=== PATIENT | female | born 1940 | race Caucasian/White ===

== ENCOUNTER 2018-09-07 12:39 | Emergency (ER) | payer MEDICARE, MEDICAID ==
[~2018-09-07] VITALS: Ht 167.6 cm; Wt 82.0 kg
[2018-09-07] MEDS ORDERED: LOSA25TA12 PO (12:48)
[2018-09-07] MEDS ORDERED: ALEN70TA3 PO (12:48)
[2018-09-07] MEDS ORDERED: ASPI-1159 PO (12:48)
[2018-09-07] MEDS ORDERED: PRAV20TA57 PO (12:48)
[2018-09-07] MEDS ORDERED: BACITRACIN ZINC OINT UDPKT TOP ONE (13:15)
[2018-09-07] MEDS ORDERED: TETANUS, DIPHTHERIA, PERTUSSIS VAC/PF 0.5ML (>7YR OLD) IM ONE (13:15)
[2018-09-07] MEDS ORDERED: ACETAMINOPHEN 325MG TABLET PO ONE (13:15)
[2018-09-07] MEDS ORDERED: LOSARTAN POTASSIUM 25 MG TABLET PO ONE (13:45)
[2018-09-07] MEDS ORDERED: LEVETIRACETAM 500MG PREMIX 100 ML IV ONE (15:30)
[2018-09-07] MEDS ORDERED: LABETALOL 5MG/ML SYR 20 MG/4 ML SYRINGE IV ONE (16:00)
[2018-09-07 16:04] LABS: BASOPHILS % 0.3 % (0.0-2.0); CHLORIDE 100 mEq/L (98-107); EOSINOPHILS % 0.6 % (0.0-5.0); HEMATOCRIT. 45.7 % (36.0-48.0); HEMOGLOBIN. 15.5 g/dL (12.0-16.0); LYMPHOCYTES % 12.4 % (20.0-50.0); MEAN CORPUSCULAR HEMOGLOBIN 30.9 pg (28.0-32.0); MEAN CORPUSCULAR VOLUME 90.9 fL (81.0-99.0); MEAN PLATELET VOLUME 8.9 fl (7.4-10.4); MONOCYTES % 4.7 % (2.0-8.0); PLATELET 193 x1000/uL (130-400); RED BLOOD CELL COUNT 5.02 mill/uL (4.2-5.4); RED CELL DISTRIBUTION WIDTH 13.7 % (11.6-14.6)
[2018-09-07 16:07] LABS: INR 1.1; PARTIAL THROMBOPLASTIN TIME 27.5 sec (23.4-31.0); PROTHROMBIN TIME 10.9 sec (9.1-11.1)
[2018-09-07] MEDS ORDERED: LABETALOL HCL 20MG/4ML CARPUJECT IV SCH ×2 (16:15)
[2018-09-07 19:38] VITALS: BP 121/60
== END 2018-09-07 20:05 | disposition short-term general hospital (02) ==
LOC: ER 12:39 → EDBEDREQ 15:26 → ER 20:05 → CANBEDREQ 23:10
DX: S00.31XA Abrasion of nose, initial encounter (principal); S00.511A Abrasion of lip, initial encounter; S00.03XA Contusion of scalp, initial encounter; I10 Essential (primary) hypertension; E78.00 Pure hypercholesterolemia, unspecified; Z79.82 Long term (current) use of aspirin; W01.0XXA Fall on same level from slipping, tripping and stumbling without subsequent striking against object, initial encounter; Y93.89 Activity, other specified; Y92.488 Other paved roadways as the place of occurrence of the external cause
CPT/HCPCS: 36415; 70450; 70486; 71045; 80053; 83880; 84484; 85025; 85610; 85730; 90471; 90715; 93005; 96365; 96375; 96376; 99285; J1953; J3490